=== PATIENT | male | born 1950 | race Caucasian/White ===

== ENCOUNTER → 2017-01-04 | Day surgery (SDC) | payer OTHER ==
[~2017-01-04] MED LIST: AZITHROMYCIN250 MG PO; FLONASE ALLERG9.9 ML; MEDROL DOSEPAK4 MG; PREDNISONE10 MG PO; SENIOR TABS1 EACH PO; VOLTAREN75 MG PO
--- NOTE | ~2017-01-04 | OR ---
Unit #: [id number] #: [id number] Patient: EVERETT ORTIZ [id number] [address] [address] [id number] O MR#: [id number] NAME: EVERETT ORTIZ. ROOM: Date of Procedure: 01/04/2017 Admission Date: 01/04/2017 Surgeon: Ricardo Sgae M.D. : 1950 Attending Physician: Ricardo Sage M.D. Primary Care Physician: Memo Durand M.D. OPERATIVE REPORT PREOPERATIVE DIAGNOSIS Right vocal cord mass. POSTOPERATIVE DIAGNOSIS Right vocal cord mass. PROCEDURE PERFORMED Microdirect laryngoscopy with excision and stripping of the right true vocal cord. ANESTHESIA By general endotracheal anesthesia. COMPLICATIONS There were none. 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 HISTORY This is a 66-year-old male, who has had at least 2 previous biopsies and excisions of the right vocal cord mass. 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 He now presents again with a recurrence of this lesion and for a right vocal cord mass removal. DESCRIPTION OF PROCEDURE The patient was placed supine on the operating room table. Anesthesia was achieved by general endotracheal anesthesia. The patient was prepped and draped for Microdirect laryngoscopy. The laryngoscope was used to visualize the glottis and the glottis was then suspended into view and the microscope was used to help visualize this more appropriately. There was noted to be verrucous and exophytic lesion occupying the entire right true vocal cord without involvement of the false vocal cord or anterior commissure. This was excised and the vocal cord was stripped using a biopsy forceps as well as a scissor. Underlying normal mucosa as well as underlying muscle also was sent for sent for biopsy. Once all of the mass was excised, a small amount of epinephrine soaked gauze was placed at the area until there was no further bleeding. The patient was then awakened and transferred to recovery in stable condition. Unit #: [id number] #: [id number] Patient: EVERETT ORTIZ Dictated by... Jose Calero TD: 01/04/2017 22:08 JOB #: [id number] OPERATIVE REPORT X Ricardo Sage MD PROCEDURE OPERATIVE NOTE
[2017-01-04 09:49] LABS: BASOPHIL# 0.1 X10e3 (0-0.3); BASOPHIL% 0.7 % (0-2.5); EOSINOPHIL# 0.4 X10e3 (0-0.7); EOSINOPHIL% 3.4 % (0.0-7.0); LYMPHOCYTE# 2.8 X10e3 (1.0-3.5); LYMPHOCYTE% 22.8 % (17.0-45.0); MEAN CELL VOLUME 93.9 FL (83-96); MEAN CORPUSCULAR HEMOGLOBIN 31.3 PG (28-34); MEAN CORPUSCULAR HGB CONC 33.3 g/dL (30-36); MEAN PLATELET VOLUME 8.6 FL (6.5-11.5); MONOCYTE# 0.9 X10e3 (0-1.0); MONOCYTE% 7.1 % (3.0-12.0); PLATELET COUNT 213 X10e3 (140-420); RED BLOOD COUNT 5.11 X10e (3.90-5.60); RED CELL DISTRIBUTION WIDTH 14.6 % (11.0-15.5); WHITE BLOOD COUNT 12.2 X10e3 (4.0-10.5)
[2017-01-04 09:58] LABS: DIFF IND NO
== END | disposition home or self-care (01) ==
LOC: CSUR 09:01
PROVIDERS: Specialist
DX: C32.0 Malignant neoplasm of glottis (principal); C49.9 Malignant neoplasm of connective and soft tissue, unspecified; R49.9 Unspecified voice and resonance disorder; J38.7 Other diseases of larynx; E66.01 Morbid (severe) obesity due to excess calories; Z79.899 Other long term (current) drug therapy; Z90.89 Acquired absence of other organs; Z88.0 Allergy status to penicillin
CPT/HCPCS: 85025; 88305; J0171; J0330; J1100; J2405; J3010